=== PATIENT | female | born 2000 | race Caucasian/White ===

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

== ENCOUNTER 2018-01-16 19:56 | Emergency (ER) | payer MEDICAID, OTHER ==
[2018-01-16] MEDS ORDERED: IBUPROFEN 600 MG TAB PO ONE (20:16)
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
[2018-01-16 21:14] VITALS: BP 119/82
== END 2018-01-16 21:13 | disposition home or self-care (01) ==
DX: M25.562 Pain in left knee (principal)